=== PATIENT | female | born 1965 | race Asian ===

== ENCOUNTER 2017-12-24 20:36 | Emergency (ER) | payer OTHER, SELFPAY ==
--- NOTE | 2017-12-24 21:05 | RAD REPORT ---
EXAM DESCRIPTION: RAD - Ankle Left 3 View - 12/24/2017 8:59 pm CLINICAL HISTORY: Trauma, ankle pain COMPARISON: None. FINDINGS: Minimal avulsion is noted from the dorsal talar neck. No additional fracture or dislocatio n seen. Moderate soft tissue swelling is present.
--- NOTE | 2017-12-24 21:54 | ER ---
Nurse's Notes [facility] Name: Willa Núñez Age: 52 yrs Sex: Female : 1965 Arrival Date: 12/24/2017 Time: 20:40 Bed 5 Private MD: Diagnosis: Small avulsion fracture left talus Presentation: 12/24 20:42 Presenting complaint: Patient states: I stepped in a hole with my left foot and now my la1 left ankle and foot hurt. Transition of care: patient was not received from another setting of care. Onset of symptoms was December 24, 2017. Care prior to arrival: None. 20:42 Method Of Arrival: Wheelchair la1 20:42 Acuity: SELENE 4 la1 Historical: - Allergies: 20:43 No Known Allergies; la1 - PMHx: 20:43 None; la1 - Immunization history:: Adult Immunizations up to date. - Social history:: Smoking status: Patient uses tobacco products, smokes one-half pack cigarettes per day. Screenin:48 Abuse screen: Denies threats or abuse. Denies injuries from another. Nutritional aa1 screening: No deficits noted. Tuberculosis screening: No symptoms or risk factors identified. Assessment: 20:48 General: Appears in no apparent distress. comfortable, Behavior is calm, cooperative, aa1 appropriate for age. Pain: Complains of pain in left foot and ankle Aggravated by weight bearing. Neuro: Level of Consciousness is awake, alert, obeys commands, Oriented to person, place, time, situation, Moves all extremities. Respiratory: Airway is patent Respiratory effort is even, unlabored, Respiratory pattern is regular, symmetrical. GI: No signs and/or symptoms were reported involving the gastrointestinal system. : No signs and/or symptoms were reported regarding the genitourinary system. EENT: No signs and/or symptoms were reported regarding the EENT system. Derm: Skin is intact, is healthy with good turgor, Skin is pink, warm \T\ dry. Musculoskeletal: Circulation, motion, and sensation intact. Capillary refill < 3 seconds, Range of motion: limited in left ankle Swelling present in left lateral ankle, left medial ankle and anterior aspect of left ankle. 21:43 Reassessment: Patient appears in no apparent distress at this time. Patient and/or aa1 family updated on plan of care and expected duration. Pain level reassessed. Patient is alert, oriented x 3, equal unlabored respirations, skin warm/dry/pink. Awaiting provider reassessment. 22:12 Reassessment: Patient appears in no apparent distress at this time. Patient is alert, aa1 oriented x 3, equal unlabored respirations, skin warm/dry/pink. Discussed d/c \T\ f/u instructions with pt; denies questions or concerns at this time. Vital Signs: 20:43 BP 126 / 69; Pulse 79; Resp 16; Temp 98.4; Pulse Ox 100% on R/A; Weight 79.38 kg; la1 Height 5 ft. 6 in. (167.64 cm); 21:43 BP 92 / 72; Pulse 70; Resp 18; Pulse Ox 98% on R/A; aa1 20:43 Body Mass Index 28.25 (79.38 kg, 167.64 cm) la1 ED Course: 20:40 Patient arrived in ED. mr 20:43 Triage completed. la1 20:43 Arm band placed on left wrist. la1 20:44 Edenilson Le MD is Attending Physician. pkl 20:44 Aimee Gonzales RN is Primary Nurse. aa1 20:50 Patient has correct armband on for positive identification. Bed in low position. Call aa1 light in reach. Pulse ox on. NIBP on. Warm blanket given. 20:58 X-ray completed. Portable x-ray completed in exam room. Patient tolerated procedure la2 well. 20:59 Ankle Left 3 View XRAY In Process Unspecified. EDMS 21:52 Flaco Welch MD is Referral Physician. pkl 21:57 No provider procedures requiring assistance completed. Patient did not have IV access aa1 during this emergency room visit. 22:07 Crutch training done. Orthoglass splint: Posterior short lleg splint applied on left aa1 leg. applied by Evan Toney [employer] Administered Medications: No medications were administered Outcome: 21:53 Discharge ordered by . pkl 22:13 Discharged to home ambulatory, with crutches, with significant other. aa1 22:13 Condition: good 22:13 Discharge instructions given to patient, Instructed on discharge instructions, follow up and referral plans. medication usage, crutch walking, Demonstrated understanding of instructions, follow-up care, medications, crutch walking, splint care, Prescriptions given X 1. 22:16 Patient left the ED. aa1 Signatures: Dispatcher [employer] EDAimee Ortiz RN RN aa1 Edenilson Le MD MD pkl Rivera, Maria mr Attema, Lee, RN RN la1 Bina Medellin
--- NOTE | 2017-12-24 21:54 | EDPHYS ---
Physician Documentation [facility] Name: Willa Núñez Age: 52 yrs Sex: Female : 1965 Arrival Date: 12/24/2017 Time: 20:40 Bed 5 Private MD: ED Physician Edenilson Le HPI: 12/24 20:51 This 52 yrs old Female presents to ER via Wheelchair with complaints of Ankle pkl Injury, Foot Pain. 20:51 The patient presents with an injury, pain, that is acute. The complaints affect the pkl left ankle. Onset: The symptoms/episode began/occurred just prior to arrival. Context: resulted from stepped into a hole. Associated signs and symptoms: The patient has no apparent associated signs or symptoms. Historical: - Allergies: 20:43 No Known Allergies; la1 - PMHx: 20:43 None; la1 - Immunization history:: Adult Immunizations up to date. - Social history:: Smoking status: Patient uses tobacco products, smokes one-half pack cigarettes per day. ROS: 20:51 Eyes: Negative for injury, pain, redness, and discharge, ENT: Negative for injury, pkl pain, and discharge, Neck: Negative for injury, pain, and swelling, Cardiovascular: Negative for chest pain, palpitations, and edema, Respiratory: Negative for shortness of breath, cough, wheezing, and pleuritic chest pain, Abdomen/GI: Negative for abdominal pain, nausea, vomiting, diarrhea, and constipation, Back: Negative for injury and pain, : Negative for injury, bleeding, discharge, and swelling. 20:51 MS/extremity: Positive for pain, swelling, tenderness, of the left ankle. 20:51 Skin: Negative for rash. 20:51 Neuro: Negative for altered mental status. Exam: 20:51 Head/Face: Normocephalic, atraumatic. Eyes: Pupils equal round and reactive to light, pkl extra-ocular motions intact. Lids and lashes normal. Conjunctiva and sclera are non-icteric and not injected. Cornea within normal limits. Periorbital areas with no swelling, redness, or edema. ENT: Nares patent. No nasal discharge, no septal abnormalities noted. Tympanic membranes are normal and external auditory canals are clear. Oropharynx with no redness, swelling, or masses, exudates, or evidence of obstruction, uvula midline. Mucous membranes moist. Neck: Trachea midline, no thyromegaly or masses palpated, and no cervical lymphadenopathy. Supple, full range of motion without nuchal rigidity, or vertebral point tenderness. No Meningismus. Chest/axilla: Normal chest wall appearance and motion. Nontender with no deformity. No lesions are appreciated. Cardiovascular: Regular rate and rhythm with a normal S1 and S2. No gallops, murmurs, or rubs. Normal PMI, no JVD. No pulse deficits. Respiratory: Lungs have equal breath sounds bilaterally, clear to auscultation and percussion. No rales, rhonchi or wheezes noted. No increased work of breathing, no retractions or nasal flaring. Abdomen/GI: Soft, non-tender, with normal bowel sounds. No distension or tympany. No guarding or rebound. No evidence of tenderness throughout. Back: No spinal tenderness. No costovertebral tenderness. Full range of motion. Skin: Warm, dry with normal turgor. Normal color with no rashes, no lesions, and no evidence of cellulitis. Neuro: Awake and alert, GCS 15, oriented to person, place, time, and situation. Cranial nerves II-XII grossly intact. Motor strength 5/5 in all extremities. Sensory grossly intact. Cerebellar exam normal. Normal gait. 20:51 Musculoskeletal/extremity: Extremities: grossly normal except: noted in the left ankle: pain, swelling, tenderness. Vital Signs: 20:43 BP 126 / 69; Pulse 79; Resp 16; Temp 98.4; Pulse Ox 100% on R/A; Weight 79.38 kg; la1 Height 5 ft. 6 in. (167.64 cm); 21:43 BP 92 / 72; Pulse 70; Resp 18; Pulse Ox 98% on R/A; aa1 20:43 Body Mass Index 28.25 (79.38 kg, 167.64 cm) la1 Procedures: 21:51 Splinting: Splint applied to left ankle using short leg posterior splint. applied by [facility] tech. Examined by me, post splint application: neurovascular intact, 2+ distal pulses palpable, brisk capillary refill noted, Patient tolerated well. MDM: 20:44 Patient medically screened. [facility] 21:51 Data reviewed: vital signs, nurses notes, radiologic studies, plain films. [facility] 12/24 20:51 Order name: Ankle Left 3 View XRAY; Complete Time: 21:47 pkl 12/24 21:50 Order name: Splint Leg: Short Leg; Complete Time: 22:07 pkl 12/24 21:50 Order name: Crutches; Complete Time: 22:07 pkl Administered Medications: No medications were administered Disposition: 12/24/17 21:53 Discharged to Home. Impression: Small avulsion fracture left talus. - Condition is Stable. - Medication Reconciliation Form, Thank You Letter, Antibiotic Education, Prescription Opioid Use form. - Follow up: Flaco Welch MD; When: 2 - 3 days; Reason: Re-evaluation by your physician. Signatures: Dispatcher [employer] Aimee Haynes RN RN aa1 Edenilson Le MD MD pkGrover Alejo RN RN la1
== END 2017-12-24 22:16 | disposition home or self-care (01) ==
LOC: ER 20:36
PROC: 2W3RX1Z Immobilization of Left Lower Leg using Splint (ICD-10-PCS; principal; 2017-12-24)
DX: S92.155A Nondisplaced avulsion fracture (chip fracture) of left talus, initial encounter for closed fracture (principal); F17.210 Nicotine dependence, cigarettes, uncomplicated; X58.XXXA Exposure to other specified factors, initial encounter; Y93.89 Activity, other specified; Y92.9 Unspecified place or not applicable
CPT/HCPCS: 99284

== ENCOUNTER 2018-07-28 16:56 | Emergency (ER) | payer SELFPAY ==
[2018-07-28 18:03] LABS: Absolute Lymphocytes (CBC) 2.5 K/uL (0.7-4.9); Absolute Monocytes 0.6 K/uL (0.1-1.3); Absolute Neutrophil 3.1 K/uL (1.8-8.0); Eosinophils % 2.6 % (0-4.4); Hematocrit 40.7 % (36.0-45.0); Lymphocytes % 39.2 % (15.3-44.8); MCH 23.8 pg (27.0-35.0); MCV 75.4 fL (80-100); MPV 9.2 fL (7.6-11.3); Monocytes % 9.3 % (3.3-12.3)
[2018-07-28 18:22] LABS: BUN Blood Urea Nitrogen 24 mg/dL (7-18); Bicarbonate 30 mmol/L (21-32); Glucose Level 96 mg/dL (74-106); Potassium 3.9 mmol/L (3.5-5.1); Sodium Level 142 mmol/L (136-145); Troponin (Emerg Dept Use Only) < 0.02 ng/mL (0.0-0.045)
--- NOTE | 2018-07-28 18:40 | EDPHYS ---
Physician Documentation [facility] Name: Willa Núñez Age: 52 yrs Sex: Female : 1965 Arrival Date: 07/28/2018 Time: 16:59 Bed 18 Private MD: ED Physician Eric Horan HPI: 07/28 18:36 This 52 yrs old Female presents to ER via Ambulatory with complaints of weakness. jr8 18:36 Onset: The symptoms/episode began/occurred acutely, 2 day(s) ago. Associated signs and jr8 symptoms: Pertinent positives: chest pain, shortness of breath. Modifying factors: The patient symptoms are alleviated by nothing, the patient symptoms are aggravated by nothing. It is unknown whether or not the patient has had similar symptoms in the past. The patient has not recently seen a physician. Stated that when she is this fatigued she normally has anemia. History of chronic anemia. Had been recently moving as well. 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 - Social history:: Smoking status: Patient uses tobacco products, smokes one-half pack cigarettes per day. - Ebola Screening: : Patient denies travel to an Ebola-affected area in the 21 days before illness onset. ROS: 18:36 Eyes: Negative for injury, pain, redness, and discharge, ENT: Negative for injury, jr8 pain, and discharge, Neck: Negative for injury, pain, and swelling, Abdomen/GI: Negative for abdominal pain, nausea, vomiting, diarrhea, and constipation, Back: Negative for injury and pain, MS/Extremity: Negative for injury and deformity, Skin: Negative for injury, rash, and discoloration, Neuro: Negative for headache, weakness, numbness, tingling, and seizure. 18:36 Constitutional: Positive for fatigue. 18:36 Cardiovascular: Positive for chest pain, Negative for edema, orthopnea, palpitations, paroxysmal nocturnal dyspnea. 18:36 Respiratory: Positive for shortness of breath, Negative for cough, dyspnea on exertion, hemoptysis, orthopnea, pleurisy, sputum production, wheezing. Exam: 18:36 Eyes: Pupils equal round and reactive to light, extra-ocular motions intact. Lids and jr8 lashes normal. Conjunctiva and sclera are non-icteric and not injected. Cornea within normal limits. Periorbital areas with no swelling, redness, or edema. ENT: Nares patent. No nasal discharge, no septal abnormalities noted. Tympanic membranes are normal and external auditory canals are clear. Oropharynx with no redness, swelling, or masses, exudates, or evidence of obstruction, uvula midline. Mucous membranes moist. Neck: Trachea midline, no thyromegaly or masses palpated, and no cervical lymphadenopathy. Supple, full range of motion without nuchal rigidity, or vertebral point tenderness. No Meningismus. Cardiovascular: Regular rate and rhythm with a normal S1 and S2. No gallops, murmurs, or rubs. Normal PMI, no JVD. No pulse deficits. Respiratory: Lungs have equal breath sounds bilaterally, clear to auscultation and percussion. No rales, rhonchi or wheezes noted. No increased work of breathing, no retractions or nasal flaring. Abdomen/GI: Soft, non-tender, with normal bowel sounds. No distension or tympany. No guarding or rebound. No evidence of tenderness throughout. Back: No spinal tenderness. No costovertebral tenderness. Full range of motion. Skin: Warm, dry with normal turgor. Normal color with no rashes, no lesions, and no evidence of cellulitis. MS/ Extremity: Pulses equal, no cyanosis. Neurovascular intact. Full, normal range of motion. Neuro: Awake and alert, GCS 15, oriented to person, place, time, and situation. Cranial nerves II-XII grossly intact. Motor strength 5/5 in all extremities. Sensory grossly intact. Cerebellar exam normal. Normal gait. Vital Signs: 17:07 BP 123 / 62; Pulse 88; Resp 18; Temp 97.7; Pulse Ox 100% on R/A; Weight 80.74 kg (R); aj1 Height 5 ft. 6 in. (167.64 cm) (R); Pain 0/10; 17:59 BP 131 / 71; Pulse 77; Resp 16; Pulse Ox 98% on R/A; Pain 0/10; em 17:07 Body Mass Index 28.73 (80.74 kg, 167.64 cm) aj1 MDM: 17:09 Patient medically screened. jr8 18:36 Data reviewed: vital signs, nurses notes, lab test result(s), EKG, radiologic studies, jr8 plain films, and as a result, I will discharge patient. Data interpreted: Pulse oximetry: on room air is 98 %. Interpretation: normal. Counseling: I had a detailed discussion with the patient and/or guardian regarding: the historical points, exam findings, and any diagnostic results supporting the discharge/admit diagnosis, lab results, radiology results, the need for outpatient follow up, a family practitioner, to return to the emergency department if symptoms worsen or persist or if there are any questions or concerns that arise at home. 07/28 17:41 Order name: CBC with Diff; Complete Time: 18:08 [facility] 07/28 17:41 Order name: Basic Metabolic Panel; Complete Time: 18:34 [facility] 07/28 17:40 Order name: EKG - Nurse/Tech; Complete Time: 17:40 [facility] 07/28 17:41 Order name: Troponin (emerg Dept Use Only); Complete Time: 18:34 8 07/28 17:41 Order name: XRAY Chest (1 view); Complete Time: 20:23 [facility] 07/28 17:58 Order name: EKG Electrocardiogram [facility] 07/28 17:41 Order name: IV; Complete Time: 18:00 [facility] Administered Medications: No medications were administered Disposition: 07/28/18 18:39 Discharged to Home. Impression: Weakness. - Condition is Stable. - Discharge Instructions: Weakness, Fatigue. - Medication Reconciliation Form, Thank You Letter, Antibiotic Education, Prescription Opioid Use form. - Follow up: Private Physician; When: 2 - 3 days; Reason: Recheck today's complaints, Continuance of care, Re-evaluation by your physician. - Problem is new. - Symptoms have improved. Addendum: 07/31/2018 07:45 Co-signature as Attending Physician, Eric Horan MD. r n Signatures: Dispatcher [employer] EDME Christina Eckert, RN RN aj1 Eric Horan MD MD rn Roszak, Josh, PA PA jr8 Gwen Pak, RN RN ak1 Corrections: (The following items were deleted from the chart) 07/28 19:34 18:39 07/28/2018 18:39 Discharged to Home. Impression: Weakness. Condition is Stable. ak1 Forms are Medication Reconciliation Form, Thank You Letter, Antibiotic Education, Prescription Opioid Use. Follow up: Private Physician; When: 2 - 3 days; Reason: Recheck today's complaints, Continuance of care, Re-evaluation by your physician. Problem is new. Symptoms have improved. jr8
--- NOTE | 2018-07-28 18:40 | ER ---
Nurse's Notes [facility] Name: Willa Núñez Age: 52 yrs Sex: Female : 1965 Arrival Date: 07/28/2018 Time: 16:59 Bed 18 Private MD: Diagnosis: Weakness Presentation: 07/28 17:04 Presenting complaint: Patient states: "I've been tired all day and Im chronic anemia. I aj1 checked my blood pressure yesterday and it was 90/53." Patient also reports that she had some shortness of breath yesterday. Denies pain at this time. Denies SOB at this time. Transition of care: patient was not received from another setting of care. Onset of symptoms was July 27, 2018. Risk Assessment: Do you want to hurt yourself or someone else? Patient reports no desire to harm self or others. Initial Sepsis Screen: Does the patient meet any 2 criteria? No. Patient's initial sepsis screen is negative. Does the patient have a suspected source of infection? No. Patient's initial sepsis screen is negative. Care prior to arrival: None. 17:04 Method Of Arrival: Ambulatory aj1 17:04 Acuity: SELENE 3 aj1 Triage Assessment: 17:07 General: Appears in no apparent distress. comfortable, Behavior is calm, cooperative, aj1 appropriate for age. Pain: Denies pain. Neuro: Level of Consciousness is awake, alert, obeys commands. Cardiovascular: Patient's skin is warm and dry. Respiratory: Airway is patent Respiratory effort is even, unlabored, Respiratory pattern is regular, symmetrical. 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 - Social history:: Smoking status: Patient uses tobacco products, smokes one-half pack cigarettes per day. - Ebola Screening: : Patient denies travel to an Ebola-affected area in the 21 days before illness onset. Screenin:38 Abuse screen: Denies threats or abuse. Nutritional screening: No deficits noted. em Tuberculosis screening: No symptoms or risk factors identified. Fall Risk None identified. Assessment: 17:50 General: Appears in no apparent distress. comfortable, Behavior is calm, cooperative. em Pain: Denies pain. Neuro: Level of Consciousness is awake, alert, obeys commands, Oriented to person, place, time, situation, Reports weakness Denies dizziness, headache. Cardiovascular: Reports shortness of breath, Denies chest pain, Capillary refill < 3 seconds Patient's skin is warm and dry. Respiratory: Airway is patent Respiratory effort is even, unlabored, Respiratory pattern is regular, symmetrical, Breath sounds are clear bilaterally. GI: Abdomen is round non-distended. : No signs and/or symptoms were reported regarding the genitourinary system. EENT: No signs and/or symptoms were reported regarding the EENT system. Derm: Skin is intact, Skin is pink, warm \\T\\ dry. Musculoskeletal: Capillary refill < 3 seconds, Range of motion: intact in all extremities. 17:58 Reassessment: I agree with previous assessment. hb 18:47 Reassessment: Patient appears in no apparent distress at this time. Patient and/or em family updated on plan of care and expected duration. Pain level reassessed. Patient is alert, oriented x 3, equal unlabored respirations, skin warm/dry/pink. Patient denies pain at this time. Patient states feeling better. Vital Signs: 17:07 BP 123 / 62; Pulse 88; Resp 18; Temp 97.7; Pulse Ox 100% on R/A; Weight 80.74 kg (R); aj1 Height 5 ft. 6 in. (167.64 cm) (R); Pain 0/10; 17:59 BP 131 / 71; Pulse 77; Resp 16; Pulse Ox 98% on R/A; Pain 0/10; em 17:07 Body Mass Index 28.73 (80.74 kg, 167.64 cm) aj1 ED Course: 16:59 Patient arrived in ED. as 17:05 Triage completed. aj1 17:07 Arm band placed on Patient placed in an exam room. aj1 17:09 Pete Curtis PA is PHCP. jr8 17:09 Eric Horan MD is Attending Physician. jr8 17:17 EKG done, by product/device technologist. reviewed by Pete WOLFE. 3 17:33 Ricardo Overton LVN is Primary Nurse. em 17:38 Patient has correct armband on for positive identification. Placed in gown. Bed in low em position. Call light in reach. Adult w/ patient. 19:19 X-ray completed. Portable x-ray completed in exam room. Patient tolerated procedure ka well. 19:20 XRAY Chest (1 view) In Process Unspecified. EDMS 19:25 No provider procedures requiring assistance completed. ak1 19:30 IV discontinued, intact, bleeding controlled, No redness/swelling at site. Pressure ak1 dressing applied, 20g IV in there right AC placed prior to this nurses care was dc'd prior to discharge. Administered Medications: No medications were administered Outcome: 18:39 Discharge ordered by MD. jr8 19:26 Discharged to home ambulatory, with family. ak1 19:26 Condition: stable 19:31 Discharge instructions given to patient, Instructed on discharge instructions, follow ak1 up and referral plans. Demonstrated understanding of instructions, follow-up care. 19:34 Patient left the ED. ak1 Signatures: Dispatcher [employer] Christina Conte, RN RN aj1 Ricardo Overton LVN LVN em Martinez, Amelia as Roszak, Josh, PA PA jr8 Gwen Pak RN RN ak1 Guerda Velez Heather, TAPAN RN Betty Casas 3
--- NOTE | 2018-07-28 19:29 | RAD REPORT ---
EXAM DESCRIPTION: Enrrique Single View07/28/2018 7:19 pm CLINICAL HISTORY: sob COMPARISON: none FINDINGS: The lungs appear clear of acute infiltrate. The heart is normal size IMPRESSION: No acute abnormalities displayed
--- NOTE | 2018-07-29 08:26 | EKG ---
Test Date: 2018-07-28 Test Time: 17:12:35 Charging Crane Operator: JACKIE MEASUREMENT RESULTS: Intervals: Rate: 75 WI: 128 QRSD: 88 QT: 362 QTc: 404 [place]: P: 56 WI: 128 QRS: -31 T: 21 INTERPRETIVE STATEMENTS: Normal sinus rhythm Left axis deviation Cannot rule out Anterior infarct, age undetermined Abnormal ECG No previous ECG available for comparison Electronically Signed On 07-29-18 08:26:00 CDT by Winston Jj
== END 2018-07-28 19:34 | disposition home or self-care (01) ==
LOC: ER 16:56
DX: R53.1 Weakness (principal)
CPT/HCPCS: 36415; 71045; 80048; 84484; 85025; 93005; 99283

== ENCOUNTER 2022-03-12 04:05 | Emergency (ER) | payer SELFPAY ==
--- OUTSIDE RECORDS SUMMARY | 2022-03-12 04:08 | XMS REPORT | Continuity of Care Document ---
:1965 Author Organization [facility] t Address [address] [place] [address] Care Team Providers Name Role Phone PCP, DOES NOT HAVE A Primary Care Physician Unavailable CORINNA Attending Clinician Unavailable Corinna BARAJAS Attending Clinician Carmelo LEVY Attending Clinician Unavailable Mirza BARAJAS S Attending Clinician Carmelo BEY Attending Clinician Unavailable Carmelo LEVY Admitting Clinician Unavailable Carmelo BEY Admitting Clinician Unavailable Payers Payer Name Policy Type Policy Number Effective Date Expiration Date S jagjit TELLO DISABILITY [id number] 2018 DETERMINATION [facility] 00:00:00 Problems Condition Condition Condition Status Onset Resolution Last Treating Co mments Source Name Details Category Date Date Treatment Clinician Date Right Right Disease Active 2020-0 Univers flank flank 5-08 [place] [facility] Branch Establishi Establishi Disease Active 2020-0 U nivers ng care ng care 5-08 ity of with new with new 00:00: [place] doctor, doctor, 00 Medical encounter encounter [place] for for Tobacco Tobacco Disease Active 2020-0 Univers dependence dependence 5-08 it y of 00:00: [place] [address] Medical Branch Pyelonephr Pyelonephr Disease Active 2020-0 U nivers itis itis 5-08 ity of 00:00: [place] [address] Medical Branch Acute Acute Disease Active 2020-0 Univers midline midline 5-08 ity of low back low back 00:00: [place] pain pain 00 Medical without without Branch sciatica sciatica Chills Chills Disease Active 2020-0 Univers 5-08 ity of 00:00: [place] 00 Medical Branch Allergies, Adverse Reactions, Alerts Allergy Allergy Status Severity Reaction(s) Onset Inactive Treating Comm ents Source Name Type Date Date Clinician Tramadol Propensi Active Itching Unive rs ty to 8-15 ity of adverse 00:00: [place] reaction 00 Medical s Branch TRAMADOL DRUG Active ITCHING Univers INGREDI 8-15 ity of 00:00: [place] 00 Medical Branch NO KNOWN Drug Active Univers ALLERGIE Class ity of S [place] [facility] Social History Social Habit Start Date Stop Date Quantity Comments Source [facility] [place] [facility] Exposure to Unable to assess Univers ity of SARS-CoV-2 [facility] (event) [place] Alcohol intake 2020-02-01 2020-02-01 [facility] 00:00:00 00:00:00 [place] [facility] Smoking Status Start Date Stop Date Source Unknown if ever smoked [facility] Current every day smoker 2020-02-01 00:00:00 Uni versity [facility] Medications Ordered Filled Start Stop Current Ordering Indication Dosage Frequency Signature Comments Components Source Medication Medication Date Date Medication? Clinician (SIG) Name Name ciprofloxac 2019-0 Yes [id number] 500mg Take 1 Univers in HCl 500 5-08 tablet by ity of mg tablet 00:00: mouth [place] 00 every 12 Medical (twelve) Branch hours. acetaminoph 2020-0 Yes [id number] 1{tbl} Take 1 Univers en-codeine 5-08 tablet by ity of 300-30 mg 00:00: mouth [place] tablet 00 every 4 Medical (four) Branch hours as needed for Pain (scale 4-6) (Cough). ciprofloxac 2020-0 Yes [id number] 500mg Take 1 Univers in HCl 500 5-08 tablet by ity of mg tablet 00:00: mouth [place] 00 every 12 Medical (twelve) Branch hours. acetaminoph 2020-0 Yes [id number] 1{tbl} Take 1 Univers en-codeine 5-08 tablet by ity of 300-30 mg 00:00: mouth [place] tablet 00 every 4 Medical (four) Branch hours as needed for Pain (scale 4-6) (Cough). ketorolac 2020-0 Yes [id number] 10mg Take 1 Un kari 10 mg 4-27 tablet by ity of tablet 00:00: mouth [place] 00 every 6 Medical (six) Branch hours as needed for Pain (scale 4-6). ketorolac Yes [id number] 10mg Take 1 Un kari 10 mg 4-27 tablet by ity of tablet 00:00: mouth [place] 00 every 6 Medical (six) Branch hours as needed for Pain (scale 4-6). meclizine 2019- No 50mg 50 mg, Unive rs (TRAVEL-EAS 04-30 08-05 Oral, ity of E 22:00: 21:13 ONCE, 1 [place] (MECLIZINE) 00 :00 dose, Mon Med ical ) tablet 50 04/30/19 at [facility] mg 1700, NAZARIO meclizine Yes [id number] 25mg Take 1 U nivers 25 mg 8-05 tablet by ity of tablet 00:00: mouth [place] 00 every 6 Medical (six) Branch hours. HYDROcodone 2019- No TK 1 T PO Univers -acetaminop 3-26 05-08 BID ity of hen 10-325 00:00: 00:00 [place] mg tablet 00 :00 Medical Branch ibuprofen Yes 800mg Take 1 Unive rs 800 mg 8-15 tablet by ity of tablet 00:00: mouth [place] 00 every 8 Medical (eight) Branch hours. ibuprofen Yes 800mg Take 1 Unive rs 800 mg 8-15 tablet by ity of tablet 00:00: mouth [place] 00 every 8 Medical (eight) Branch hours. acetaminoph 2019- No 1{tbl} Take 1 U nivers en-codeine 8-15 05-08 tablet by ity of 300-30 mg 00:00: 00:00 mouth [place] tablet 00 :00 every 4 Medical (four) Branch hours as needed for Pain (scale 4-6) (Cough). Hydrocodone Yes Take by Un kari -Acetaminop 1-06 mouth. ity of hen (XODOL 16:46: [place] 7.5/300) 36 Medical 7.5-300 mg Branch tablet Vital Signs Vital Name Observation Time Observation Value Comments Source Heart rate 2019-04-30 21:49:00 65 /[facility] Respiratory rate 2019-04-30 21:49:00 15 /min [facility] Oxygen saturation in 2019-04-30 21:49:00 100 /min [facility] Arterial blood by [facility] Pulse oximetry Branch Systolic blood 2019-04-30 21:00:00 103 mm[Hg] Univer sity of pressure [place] [facility] Diastolic blood 2019-04-30 21:00:00 67 mm[Hg] Unive rsity of pressure [place] [facility] Body temperature 2019-04-30 19:51:00 36.94 Jacqueline [facility] Body height 2019-04-30 19:51:00 162.6 cm [facility] Body weight 2019-04-30 19:51:00 79.833 kg [facility] BMI 2019-04-30 19:51:00 30.21 kg/m2 [facility] Procedures Procedure Date / Time Performing Clinician Source Performed COMP. METABOLIC PANEL 2019-04-30 20:36:00 Jane Bey [facility] ([id number]) [facility] CBC WITH DIFFERENTIAL 2019-04-30 20:36:00 Jane Bey [facility] CT HEAD WO CONTRAST 2019-04-30 20:32:15 Jane Bey [facility] EKG-12 LEAD 2019-04-30 20:17:49 Jane Bey [facility] Encounters Start End Encounter Admission Attending Care Care Encounter Source Date/Time Date/Time Type Type Clinicians Facility Department ID 2020-03-04 2020-03-04 Outpatient R CORINNA [facility] [id number] Univers 12:40:00 12:40:00 JAMES [id number] [facility] 2020-03-04 2020-03-04 Outpatient R CORINNA [facility] [id number] Univers 12:40:00 12:40:00 JAMES [facility] 2020-02-28 2020-02-28 Outpatient R CORINNA [facility] [id number] Univers 09:00:00 09:00:00 JAMES Hall [facility] 2020-02-28 2020-02-28 Outpatient R CORINNA [facility] [id number] Univers 09:00:00 09:00:00 JAMES [facility] 2020-02-15 2020-02-15 Outpatient R CORINNA [facility] [id number] Univers 09:40:00 09:40:00 JAMES [id number] ity [facility] 2020-02-15 2020-02-15 Outpatient R CORINNA [facility] [id number] Univers 09:40:00 09:40:00 JAMES farzana [facility] 2020-02-15 2020-02-15 [facility] [id number] Univers 00:00:00 00:00:00 James Leonard [id number] i ty [id number] [phone] Pr dical nal [address] [place] [address] 2020-02-01 2020-02-01 [facility] [id number] Univers 10:40:00 10:40:00 [facility]-01 2020-02-01 [facility] [id number] Univers 10:40:00 10:40:00 JAMES farzana [facility] 2020-02-01 2020-02-01 [facility] [id number] Univers 10:40:00 10:40:00 JAMES farzana [facility] 2020-02-01 2020-02-01 [facility] [id number] Univers 07:27:18 08:07:18 ne Visit James Leonard [id number] ity [facility] [id number] [phone] Pr dical nal [address] [place] [address] 2020-01-21 2020-01-21 Emergency X LEVY, [facility] ERT [id number] Univers 10:19:26 12:17:00 GISSELLE [facility] 2019-04-30 2019-04-30 [facility] [id number] Univers 15:00:09 17:27:00 Jane Leonard [id number] ity of [place] 4.2.7.2.686 [facility] [phone] [facility] 084 Branch 2019-04-30 2019-04-30 Emergency X MIRZA [facility] ERT [id number] Univers 15:00:09 17:27:00 JANE corona [facility] Results Test Description Test Time Test Comments Results Result Comments Source COMP. METABOLIC PANEL (36274) 2019-04-30 21:31:00 Test Item Value Reference Range Interpretation Comme nts NA (test code = 9900473491) 142 mmol/L 135-145 K (test code = 9390839445) 4.3 mmol/L 3.5-5 CL (test code = 3798746742) 108 mmol/L 98-108 CO2 TOTAL (test code = 27 mmol/L 23-31 3747256787) AGAP (test code = 3969805804) 2-16 BUN (test code = 1977416323) 21 mg/dL 7-23 GLUCOSE (test code = 4226953942) 80 mg/dL 70-110 CREATININE (test code = 0.65 mg/dL 0.5-1.04 2066431123) TOTAL BILI (test code = 0.4 mg/dL 0.1-1.1 2649504052) CALCIUM (test code = 8771575722) 9.4 mg/dL 8.6-10.6 T PROTEIN (test code = 7.1 g/dL 6.3-8.2 5965482431) ALBUMIN (test code = 0830366313) 4.3 g/dL 3.5-5 ALK PHOS (test code = 0609439003) 60 U/L 34-122 ALT(SGPT) (test code = 15 U/L 9-51 3824444540) AST(SGOT) (test code = 19 U/L 13-40 7177317863) eGFR Calculation (Non- mL/min/1.73m2 [place]) (test code = 9324277240) eGFR Calculation ( mL/min/1.73m2 [place]) (test code = 0439685695) BUSHRA (test code = BUSHRA) Association of Glomerular Filtration Rate (GFR) and Staging of Kidney Disease*+ +- + +| GFR (mL/min/1.73 m2)?| With Kidney Damage?|?Without Kidney Damage+ +--- + +|?>90?|?Stage one?|? Normal?+ +-- + +|?60-89?|?Stage two?|? Decreased GFR? + +--------- + ----+|?30-59?|?Stage three?|? Stage three? + +--------- + ----+|?15-29?|?Stage four? |? Stage four?+ +---- + ---------+|?<15 (or dialysis)?|?Stage five? |? Stage five?+ +---- + ---------+*Each stage assumes the associated GFR level has been in effect for at least three months.?Stages 1 to 5, with or without kidney disease, indicate chronic kidney disease.Notes: Determination of stages one and two (with eGFR >59mL/min/1.73 m2) requires estimation of kidney damage for at least three months as defined by structural or functional abnormalities of the kidney, manifested by either:Pathological abnormalities or Markers of kidney damage (including abnormalities in the composition of the blood or urine or abnormalities in imaging tests). [facility] WITH [id number] 20:54:00 Test Item Value Reference Range Interpretation Comments WBC (test code = See_Comment [Automated 9812-2) message] The sy stem which generated this result transmitted reference range : 4.30 - 11.10 10*3/?L. The reference range was not used to interpret this result as normal/abnormal . RBC (test code = See_Comment H [Automated 179-8) message] The sy stem which generated this result transmitted reference range : 3.93 - 5.25 10*6/?L. The reference range was not used to interpret this result as normal/abnormal . HGB (test code = 12.9 g/dL 11.6-15 718-7) HCT (test code = 43.2 % 35.7-45.2 4544-3) MCV (test code = 78.0 fL 80.6-95.5 L 787-2) MCH (test code = 23.3 pg 25.9-32.8 L 785-6) MCHC (test code = 29.9 g/dL 31.6-35.1 L 786-4) RDW-SD (test code = 42.3 fL 39-49.9 26601-0) RDW-CV (test code = 15.0 % 12-15.5 788-0) PLT (test code = See_Comment [Automated 777-3) message] The sy stem which generated this result transmitted reference range : 166 - 358 10*3/ ?L. The reference r lanie was not used to interpret this result as normal/abnormal . MPV (test code = 11.3 fL 9.5-12.9 41664-5) NRBC/100 WBC (test See_Comment [Automat ed code = 0316156767) message] The system which generated this result transmitted reference range : 0.0 - 10.0 /100 WBCs. The refer ence range was not u sed to interpret th is result as normal/abnormal . NRBC x10^3 (test code <0.01 See_Comment [Auto mated = 8812093937) message] The s ystem which generated this result transmitted reference range : 10*3/?L. The reference range was not used to interpret this result as normal/abnormal . GRAN MAT (NEUT) % 48.1 % (test code = 770-8) IMM GRAN % (test code 0.30 % = 1817601126) LYMPH % (test code = 39.4 % 736-9) MONO % (test code = 8.3 % 5905-5) EOS % (test code = 3.3 % 713-8) BASO % (test code = 0.6 % 706-2) GRAN MAT x10^3(ANC) 3.31 10*3/uL 1.88-7.09 (test code = 2299323190) IMM GRAN x10^3 (test <0.03 0-0.06 code = 7612092671) LYMPH x10^3 (test code 2.71 10*3/uL 1.32-3.29 = 731-0) MONO x10^3 (test code 0.57 10*3/uL 0.33-0.92 = 742-7) EOS x10^3 (test code = 0.23 10*3/uL 0.03-0.39 711-2) BASO x10^3 (test code 0.04 10*3/uL 0.01-0.07 = 704-7) Lab Interpretation Abnormal (test code = 76240-4) [id number] 20:48:26* * * * * * * * ORIGINAL REPORT * * * * * * * *CT HEAD WITHOUT CONTRAST HISTORY:?Dizziness, non-specific TECHNIQUE: Routine CT scan of the brain is performed without intravenouscontrast. FINDINGS: There is no evidence of an acute intracranial abnormality. Nointra-axial or extra-axial fluid collectionsor masses are seen. Nomass-effect or midline shift is seen. The larson-white distinction ispreserved. The ventricles and cisterns are within normal limits. No calvarial abnormality is noted. CONCLUSIONS:No acute intracranial abnormality. [facility], Radiant Results Inft User - 04/30/2019 3:50 PM CDT* * * * * * * * ORIGINAL REPORT * * * * * * * *CT HEAD WITHOUT CONTRASTHISTORY: Dizziness, non-specificTECHNIQUE: Routine CT scan of the brain is performed without intravenouscontrast.FINDINGS: There is no evidence of an acute intracranial abnormality. Nointra-axial or extra-axial fluid collections or masses are seen. Nomass-effect or midline shift is seen. The larson-white distinction ispreserved. The ventricles and cisterns are within normal limits.No calvarial abnormality is noted.CONCLUSIONS: No acute intracranial abnormality. [facility]"
[2022-03-12 04:53] LABS: Absolute Lymphocytes (CBC) 2.4 K/uL (0.7-4.9); Hematocrit 39.7 % (36.0-45.0); Lymphocytes % 35.3 % (15.3-44.8); MPV 8.4 fL (7.6-11.3); RBC Red Blood Cell Count 5.25 M/uL (3.86-4.86)
[2022-03-12] MEDS ORDERED: NA CHLORIDE 0.9% 500 ML ONE (04:53)
[2022-03-12] MEDS ORDERED: ONDANSETRON 4 MG/2 ML VIAL ONE (04:53)
[2022-03-12] MEDS ORDERED: NA CHLORIDE 0.9% 1,000 ML ONE (04:53)
[2022-03-12] MEDS ORDERED: DIAZEPAM 5 MG TABLET ONE (04:53)
[2022-03-12] MEDS ORDERED: MORPHINE 2 MG/ML SYR ONE (04:53)
[2022-03-12 05:14] LABS: Albumin 3.8 g/dL (3.4-5.0); Bilirubin Total 0.5 mg/dL (0.2-1.0); Potassium 3.8 mmol/L (3.5-5.1); Troponin High Sensitivity 3.5 pg/mL (<58.9)
--- NOTE | 2022-03-12 05:31 | EDPHYS ---
Physician Documentation [facility] Name: Willa Núñez Age: 56 yrs Sex: Female : 1965 Arrival Date: 03/12/2022 Time: 04:07 Bed 17 Private MD: ED Physician Min Li HPI: 03/12 04:26 This 56 yrs old Female presents to ER via EMS with complaints of Leg Pain. [facility] 04:26 The patient presents with pain, that is acute. The complaints affect the left ronan quadriceps, left knee and left crowder. Context: The problem was sustained at home, resulted from an unknown cause, the patient can fully bear weight, the patient is able to ambulate. Onset: The symptoms/episode began/occurred just prior to arrival. Modifying factors: The symptoms are alleviated by elevating leg, the symptoms are aggravated by nothing. Associated signs and symptoms: The patient has no apparent associated signs or symptoms. Treatment prior to arrival includes: no previous treatment. Severity of symptoms: At their worst the symptoms were moderate, in the emergency department the symptoms have improved, moderately. The patient has experienced similar episodes in the past, multiple times. Historical: - Allergies: 04:13 No Known Allergies; lp1 - Home Meds: 04:13 None [Active]; lp1 - PMHx: 04:13 Anxiety; chronic anemia; Depression; Muscle cramps; lp1 - PSHx: 04:13 Tubal Ligation; lp1 - Immunization history:: Adult Immunizations up to date. - Social history:: Smoking status: Patient reports the use of cigarette tobacco products, smokes one-half pack cigarettes per day. - Family history:: not pertinent. ROS: 04:26 Constitutional: Negative for fever, chills, and weight loss, Eyes: Negative for injury, ronan pain, redness, and discharge, ENT: Negative for injury, pain, and discharge, Neck: Negative for injury, pain, and swelling, Cardiovascular: Negative for chest pain, palpitations, and edema, Respiratory: Negative for shortness of breath, cough, wheezing, and pleuritic chest pain, Abdomen/GI: Negative for abdominal pain, nausea, vomiting, diarrhea, and constipation, Back: Negative for injury and pain, : Negative for injury, bleeding, discharge, and swelling, Skin: Negative for injury, rash, and discoloration, Neuro: Negative for headache, weakness, numbness, tingling, and seizure, Psych: Negative for depression, anxiety, suicide ideation, homicidal ideation, and hallucinations, Allergy/Immunology: Negative for hives, rash, and allergies, Endocrine: Negative for neck swelling, polydipsia, polyuria, polyphagia, and marked weight changes, Hematologic/Lymphatic: Negative for swollen nodes, abnormal bleeding, and unusual bruising. 04:26 MS/extremity: Positive for decreased range of motion, of the left leg. Exam: 04:26 Constitutional: This is a well developed, well nourished patient who is awake, alert, ronan and in no acute distress. Head/Face: Normocephalic, atraumatic. Eyes: Pupils equal round and reactive to light, extra-ocular motions intact. Lids and lashes normal. Conjunctiva and sclera are non-icteric and not injected. Cornea within normal limits. Periorbital areas with no swelling, redness, or edema. ENT: Nares patent. No nasal discharge, no septal abnormalities noted. Tympanic membranes are normal and external auditory canals are clear. Oropharynx with no redness, swelling, or masses, exudates, or evidence of obstruction, uvula midline. Mucous membranes moist. Neck: Trachea midline, no thyromegaly or masses palpated, and no cervical lymphadenopathy. Supple, full range of motion without nuchal rigidity, or vertebral point tenderness. No Meningismus. Chest/axilla: Normal chest wall appearance and motion. Nontender with no deformity. No lesions are appreciated. Cardiovascular: Regular rate and rhythm with a normal S1 and S2. No gallops, murmurs, or rubs. Normal PMI, no JVD. No pulse deficits. Respiratory: Lungs have equal breath sounds bilaterally, clear to auscultation and percussion. No rales, rhonchi or wheezes noted. No increased work of breathing, no retractions or nasal flaring. Abdomen/GI: Soft, non-tender, with normal bowel sounds. No distension or tympany. No guarding or rebound. No evidence of tenderness throughout. Back: No spinal tenderness. No costovertebral tenderness. Full range of motion. Female : Normal external genitalia. Skin: Warm, dry with normal turgor. Normal color with no rashes, no lesions, and no evidence of cellulitis. MS/ Extremity: Pulses equal, no cyanosis. Neurovascular intact. Full, normal range of motion. Neuro: Awake and alert, GCS 15, oriented to person, place, time, and situation. Cranial nerves II-XII grossly intact. Motor strength 5/5 in all extremities. Sensory grossly intact. Cerebellar exam normal. Normal gait. Psych: Awake, alert, with orientation to person, place and time. Behavior, mood, and affect are within normal limits. 05:32 ECG was reviewed by the Attending Physician. [facility] Vital Signs: 04:12 BP 102 / 49; Pulse 74; Resp 18; Temp 97.6(TE); Pulse Ox 100% on R/A; Weight 83.91 kg lp1 (R); Height 5 ft. 5 in. (165.10 cm); Pain 3/10; 05:00 BP 94 / 47; Pulse 65; Resp 18; Pulse Ox 100% on R/A; ll3 06:00 BP 101 / 57; Pulse 78; Resp 17; Pulse Ox 100% on R/A; ll3 04:12 Body Mass Index 30.79 (83.91 kg, 165.10 cm) lp1 MDM: 04:09 Patient medically screened. [facility] 04:29 Differential diagnosis: contusion, tendonitis. Data reviewed: vital signs, nurses [facility] notes, lab test result(s), EKG, radiologic studies, doppler. Data interpreted: resource efficiency manager: rate is 74 beats/min, rhythm is regular, Pulse oximetry: on room air is 100 %. Test interpretation: by ED physician or midlevel provider: ECG, plain radiologic studies. Counseling: I had a detailed discussion with the patient and/or guardian regarding: the historical points, exam findings, and any diagnostic results supporting the discharge/admit diagnosis, lab results, radiology results, the need for outpatient follow up, for definitive care, a family practitioner. 03/12 04:26 Order name: Comprehensive Metabolic Panel; Complete Time: 05:26 [facility] 03/12 04:26 Order name: CBC with Diff; Complete Time: 05:26 [facility] 03/12 04:26 Order name: US Extremity Venous Unilateral Ltd ronan 03/12 04:26 Order name: Troponin High Sensitivity; Complete Time: 05:26 [facility] 03/12 05:36 Order name: Magnesium EDMS 03/12 04:26 Order name: EKG; Complete Time: 04:27 [facility] 03/12 04:26 Order name: EKG - Nurse/Tech; Complete Time: 05:08 ronan EC:32 Rate is 62 beats/min. Rhythm is regular. QRS [place] is Normal. [place] interval is normal. QRS ronan interval is normal. QT interval is normal. No Q waves. T waves are Normal. No ST changes noted. Clinical impression: Normal ECG and No evidence of ischemia. Interpreted by me. Reviewed by me. Administered Medications: 04:50 Drug: NS 0.9% 500 ml Route: IV; Rate: bolus; Site: right antecubital; ll3 06:01 Follow up: Response: No adverse reaction; IV Status: Order to discontinue infusion; IV ll3 Intake: 250ml 04:50 Drug: Valium (diazepam) 5 mg Route: PO; ll3 05:49 Follow up: Response: No adverse reaction ll3 04:50 Drug: Zofran (Ondansetron) 4 mg Route: IVP; Site: right antecubital; ll3 05:49 Follow up: Response: No adverse reaction ll3 05:11 Not Given (Patient Refused): morphine 2 mg IVP or IV at per protocol once; (PAIN>8) ll3 RASS on ADMN: Combtv4, Very Agttd3, Agttd2, Rstlss1, AlertClm0, Drwsy-1, LtSdtn-2, ModSdtn-3, DpSdtn-4, UnArsble-5 x2 05:49 Not Given (Pt dischargedd): NS 0.9% 1000 ml IV at 125 ml/hr continuous ll3 Disposition Summary: 03/12/22 05:31 Discharge Ordered Location: Home ronan Problem: new ronan Symptoms: have improved ronan Condition: Stable ronan Diagnosis - Cramp and spasm ronan - Pain in left leg ronan Followup: ronan - With: Private Physician - When: 2 - 3 days - Reason: Recheck today's complaints, Continuance of care, Re-evaluation by your physician Followup: ronan - With: - When: 2 - 3 days - Reason: Recheck today's complaints, Re-evaluation by your physician Discharge Instructions: - Discharge Summary Sheet ronan - Leg Cramps ronan - Muscle Cramps and Spasms ronan - Musculoskeletal Pain ronan Forms: - Medication Reconciliation Form ronan - Thank You Letter ronan - Antibiotic Education ronan - Prescription Opioid Use ronan Prescriptions: - Valium 2 mg Oral Tablet - take 1 tablet by ORAL route every 8 hours As needed; 20 tablet; Refills: 0, [facility] Product Selection Permitted - Motrin IB 200 mg Oral Tablet - take 2 tablet by ORAL route every 6 hours As needed as needed with food; 30 rnoan tablet; Refills: 0, Product Selection Permitted Signatures: Dispatcher [employer] EDMin Wooten MD MD cha Pena, Laura RN RN lp1 Babar Metcalf RN RN ll3 Corrections: (The following items were deleted from the chart) 05:40 05:34 MAGNESIUM+C.LAB.BRZ ordered. EDND EDMS
--- NOTE | 2022-03-12 05:31 | ER ---
Nurse's Notes [facility] Name: Willa Núñez Age: 56 yrs Sex: Female : 1965 Arrival Date: 03/12/2022 Time: 04:07 Bed 17 Private MD: Diagnosis: Cramp and spasm;Pain in left leg Presentation: 03/12 04:12 Chief complaint: EMS states: Called for patient with severe left lower leg cramping lp1 this morning; Patient has hx of muscle cramps, relieved by drinking pickle juice. Coronavirus screen: At this time, the client does not indicate any symptoms associated with coronavirus-19. Ebola Screen: No symptoms or risks identified at this time. Initial Sepsis Screen: Does the patient meet any 2 criteria? No. Patient's initial sepsis screen is negative. Does the patient have a suspected source of infection? No. Patient's initial sepsis screen is negative. Risk Assessment: Do you want to hurt yourself or someone else? Patient reports no desire to harm self or others. Onset of symptoms was March 12, 2022. 04:12 Method Of Arrival: EMS: [facility] lp1 04:12 Acuity: SELENE 4 lp1 Triage Assessment: 04:15 General: Appears uncomfortable, Behavior is calm, cooperative. Pain: Complains of pain ll3 in left quadriceps Pain currently is 3 out of 10 on a pain scale. Pain began 1 hour ago. Is continuous, Noted to be Left quadriceps quivering. Neuro: Level of Consciousness is awake, alert, obeys commands, Oriented to person, place, time, situation. Derm: Skin is pink, warm \T\ dry. Musculoskeletal: Circulation, motion, and sensation intact. Left quad spasm Reports pain in left quadriceps. Historical: - Allergies: 04:13 No Known Allergies; lp1 - Home Meds: 04:13 None [Active]; lp1 - PMHx: 04:13 Anxiety; chronic anemia; Depression; Muscle cramps; lp1 - PSHx: 04:13 Tubal Ligation; lp1 - Immunization history:: Adult Immunizations up to date. - Social history:: Smoking status: Patient reports the use of cigarette tobacco products, smokes one-half pack cigarettes per day. - Family history:: not pertinent. Screenin:14 Abuse screen: Denies threats or abuse. Denies injuries from another. Nutritional lp1 screening: No deficits noted. Tuberculosis screening: No symptoms or risk factors identified. Fall Risk None identified. Assessment: 04:15 General: See triage assessment. ll3 05:15 Reassessment: No changes from previously documented assessment. Patient and/or family ll3 updated on plan of care and expected duration. Pain level reassessed. Patient is alert, oriented x 3, equal unlabored respirations, skin warm/dry/pink. 06:00 Reassessment: No changes from previously documented assessment. Patient and/or family ll3 updated on plan of care and expected duration. Pain level reassessed. Patient is alert, oriented x 3, equal unlabored respirations, skin warm/dry/pink. Patient states feeling better. Patient states symptoms have improved. Vital Signs: 04:12 BP 102 / 49; Pulse 74; Resp 18; Temp 97.6(TE); Pulse Ox 100% on R/A; Weight 83.91 kg lp1 (R); Height 5 ft. 5 in. (165.10 cm); Pain 3/10; 05:00 BP 94 / 47; Pulse 65; Resp 18; Pulse Ox 100% on R/A; ll3 06:00 BP 101 / 57; Pulse 78; Resp 17; Pulse Ox 100% on R/A; ll3 04:12 Body Mass Index 30.79 (83.91 kg, 165.10 cm) lp1 ED Course: 04:07 Patient arrived in ED. vc1 04:09 Min Li MD is Attending Physician. ronan 04:13 Triage completed. lp1 04:13 Arm band placed on right wrist. lp1 04:15 Patient has correct armband on for positive identification. lp1 04:29 Babar Metcalf, TAPAN is Primary Nurse. ll3 04:41 Inserted saline lock: 22 gauge in right antecubital area, using aseptic technique. ds4 Blood collected. 04:58 US Extremity Venous Unilateral Ltd In Process Unspecified. EDMS 05:31 Rocky Koehler DO is Referral Physician. ronan 05:51 No provider procedures requiring assistance completed. ll3 06:00 IV discontinued, intact, bleeding controlled, No redness/swelling at site. Pressure ll3 dressing applied. Administered Medications: 04:50 Drug: NS 0.9% 500 ml Route: IV; Rate: bolus; Site: right antecubital; ll3 06:01 Follow up: Response: No adverse reaction; IV Status: Order to discontinue infusion; IV ll3 Intake: 250ml 04:50 Drug: Valium (diazepam) 5 mg Route: PO; ll3 05:49 Follow up: Response: No adverse reaction ll3 04:50 Drug: Zofran (Ondansetron) 4 mg Route: IVP; Site: right antecubital; ll3 05:49 Follow up: Response: No adverse reaction ll3 05:11 Not Given (Patient Refused): morphine 2 mg IVP or IV at per protocol once; (PAIN>8) ll3 RASS on ADMN: Combtv4, Very Agttd3, Agttd2, Rstlss1, AlertClm0, Drwsy-1, LtSdtn-2, ModSdtn-3, DpSdtn-4, UnArsble-5 x2 05:49 Not Given (Pt dischargedd): NS 0.9% 1000 ml IV at 125 ml/hr continuous ll3 Medication: 04:14 VIS not applicable for this client. lp1 Intake: 06:01 IV: 250ml; Total: 250ml. ll3 Outcome: 05:31 Discharge ordered by . ronan 06:00 Discharged to home ambulatory, with family. ll3 06:00 Condition: stable 06:00 Discharge instructions given to patient, family, Instructed on discharge instructions, follow up and referral plans. medication usage, Demonstrated understanding of instructions, follow-up care, medications, Prescriptions given X 3. 06:02 Patient left the ED. ll3 Signatures: Dispatcher [employer] EDMin Wooten MD MD cha Pena, Laura RN RN lp1 Leopoldo Quintero4 Babar Metcalf RN RN ll3 Sol Barney RN RN vc1
[2022-03-12 06:10] VITALS: TEMP 97.6; O2SAT 100
[2022-03-12 06:13] VITALS: BP 101/57
--- NOTE | 2022-03-12 12:14 | RAD REPORT ---
EXAM DESCRIPTION: US - Extremity Venous Uni Ltd - 03/12/2022 4:56 amStill needs to be read CLINICAL HISTORY: PAIN COMPARISON: None. TECHNIQUE: Real-time sonographic evaluation of the right lower extremity deep venous systems was per formed. FINDINGS: Normal compressibility, flow augmentation, phasic flow and spontaneous flow are identified in the right lower extremity common femoral, superficial femoral, popliteal and posterior tibial vei ns. No intraluminal filling defects seen. IMPRESSION: No DVT in the right lower extremity.
--- NOTE | 2022-03-13 08:55 | EKG ---
Test Date: 2022-03-12 Test Time: 04:59:44 Flat Locker: MITUL MEASUREMENT RESULTS: Intervals: Rate: 62 MO: 136 QRSD: 90 QT: 422 QTc: 428 [place]: P: 53 MO: 136 QRS: -27 T: 45 INTERPRETIVE STATEMENTS: Normal sinus rhythm Normal ECG Compared to ECG 07/28/2018 17:12:35 Left-axis deviation no longer present Myocardial infarct finding no longer present Electronically Signed On 03-13-22 08:55:08 CDT by [facility]
== END 2022-03-12 06:02 | disposition home or self-care (01) ==
LOC: ER 04:05
DX: R25.2 Cramp and spasm (principal); F17.210 Nicotine dependence, cigarettes, uncomplicated
CPT/HCPCS: 36415; 80053; 83735; 84484; 85025; 93005; 93971; 96361; 96374; 99284; J2270; J2405; J7030; J7040

== ENCOUNTER 2023-05-15 12:20 | Emergency (ER) | payer BC, SELFPAY ==
--- OUTSIDE RECORDS SUMMARY | 2023-05-15 12:23 | XMS REPORT | Continuity of Care Document ---
:1965 Author Organization [facility] t Address [address] [place] [address] [place] [id number] Care Team Providers Name Role Phone PCP, PATIENT DOES NOT HAVE A Primary Care Physician UnavailJAMES [place] Attending Clinician Unavailable James Weinstein MD Attending Clinician GISSELLE LEVY Attending Clinician Unavailable Jane Bey MD Attending Clinician JANE BEY Attending Clinician Unavailable GISSELLE LEVY Admitting Clinician Unavailable JANE BEY Admitting Clinician Unavailable Payers Payer Name Policy Type Policy Number Effective Date Expiration Date Carmelo TELLO DISABILITY [id number] 2018 DETERMINATION [employer] 00:00:00 Problems Condition Condition Condition Status Onset Resolution Last Treating Co mments Source Name Details Category Date Date Treatment Clinician Date Right Right Disease Active 2020-0 Univers flank flank 5-08 [place] [facility] Branch Establishi Establishi Disease Active 2020-0 U nivers ng care ng care 5-08 ity of with new with new 00:00: [place] doctor, doctor, 00 Medical encounter encounter Bran ch for for Tobacco Tobacco Disease Active 2020-0 Univers dependence dependence 5-08 it y of 00:00: [address] Branch Pyelonephr Pyelonephr Disease Active 2020-0 U nivers itis itis 5-08 ity of 00:00: [place] [address] Medical Branch Acute Acute Disease Active 2020-0 Univers midline midline 5-08 ity of low back low back 00:00: [place] pain pain 00 Medical without without Branch sciatica sciatica Chills Chills Disease Active Univers 5-08 ity of 00:00: [place] 00 Medical Branch Allergies, Adverse Reactions, Alerts Allergy Allergy Status Severity Reaction(s) Onset Inactive Treating Comm ents Source Name Type Date Date Clinician Tramadol Propensi Active Itching Unive rs ty to 8-15 ity of adverse 00:00: [place] reaction 00 Medical s Branch TRAMADOL DRUG Active ITCHING Univers INGREDI 8-15 ity of 00:00: [place] 00 Medical Branch NO KNOWN Drug Active Univers ALLERGIE Class ity of S [facility] Social History Social Habit Start Date Stop Date Quantity Comments Source Sex Assigned At [facility] Exposure to Unable to assess Univers ity of SARS-CoV-2 [facility] (event) Gypsy Alcohol intake 2020-02-01 2020-02-01 [place] of 00:00:00 00:00:00 [facility] Smoking Status Start Date Stop Date Source Unknown if ever smoked [facility] y [facility] Current every day smoker 2020-02-01 00:00:00 Uni versity of [facility] Medications Ordered Filled Start Stop Current Ordering Indication Dosage Frequency Signature Comments Components Source Medication Medication Date Date Medication? Clinician (SIG) Name Name ciprofloxac Yes [id number] 500mg Take 1 Univers in HCl 500 5-08 tablet by ity of mg tablet 00:00: mouth [place] 00 every 12 Medical (twelve) Branch hours. acetaminoph 2019-0 Yes [id number] 1{tbl} Take 1 Univers en-codeine 5-08 tablet by ity of 300-30 mg 00:00: mouth [place] tablet 00 every 4 Medical (four) Branch hours as needed for Pain (scale 4-6) (Cough). ciprofloxac 2019-0 Yes [id number] 500mg Take 1 Univers in HCl 500 5-08 tablet by ity of mg tablet 00:00: mouth [place] 00 every 12 Medical (twelve) Branch hours. acetaminoph 2020-0 Yes [id number] 1{tbl} Take 1 Univers en-codeine 5-08 tablet by ity of 300-30 mg 00:00: mouth [place] tablet 00 every 4 Medical (four) Branch hours as needed for Pain (scale 4-6) (Cough). ketorolac 2019-0 Yes [id number] 10mg Take 1 Un kari 10 mg 4-27 tablet by ity of tablet 00:00: mouth [place] 00 every 6 Medical (six) Branch hours as needed for Pain (scale 4-6). ketorolac Yes [id number] 10mg Take 1 Un kari 10 mg 4-27 tablet by ity of tablet 00:00: mouth [place] 00 every 6 Medical (six) Branch hours as needed for Pain (scale 4-6). meclizine 2019- No 50mg 50 mg, Unive rs (TRAVEL-EAS 8-05 08-05 Oral, ity of E 22:00: 21:13 ONCE, 1 [place] (MECLIZINE) 00 :00 dose, Mon Med ical ) tablet 50 04/30/19 at [facility] mg 1700, NAZARIO meclizine Yes [id number] 25mg Take 1 U nivers 25 mg [...] (scale 4-6) (Cough). Hydrocodone Yes Take by Uni vers -Acetaminop 1-06 mouth. ity of hen (XODOL 16:46: [place] 7.5/300) 36 Medical 7.5-300 mg Branch tablet Vital Signs Vital Name Observation Time Observation Value Comments Source Heart rate 2019-04-30 21:49:00 65 /min [facility] [place] [facility] Respiratory rate 2019-04-30 21:49:00 15 /min [facility] Oxygen saturation in 2019-04-30 21:49:00 100 /min [facility] Arterial blood by [facility] Pulse oximetry Branch Systolic blood 2019-04-30 21:00:00 103 mm[Hg] Univer sity of pressure [facility] Diastolic blood 2019-04-30 21:00:00 67 mm[Hg] [facility] Body temperature 2019-04-30 19:51:00 36.94 Jacqueline [facility] Body height 2019-04-30 19:51:00 162.6 cm [facility] Body weight 2019-04-30 19:51:00 79.833 kg [facility] BMI 2019-04-30 19:51:00 30.21 kg/m2 [facility] Procedures Procedure Date / Time Performing Clinician Source Performed COMP. METABOLIC PANEL 2019-04-30 20:36:00 Jane Bey [facility] ([id number]) [facility] CBC WITH DIFFERENTIAL 2019-04-30 20:36:00 Jane Bey [facility] CT HEAD WO CONTRAST 2019-04-30 20:32:15 Jane Bey [facility] EKG-12 LEAD 2019-04-30 20:17:49 Jane Bey [facility] Encounters Start End Encounter Admission Attending Care Care Encounter Source Date/Time Date/Time Type Type Clinicians Facility Department ID 2020-03-04 2020-03-04 Outpatient R [facility]INNA [facility] [id number] [facility] 12:40:00 12:40:00 JAMES [facility] 2020-02-28 2020-02-28 Outpatient R [facility]INNA [facility] [id number] Univers 09:00:00 09:00:00 JAMES [facility] 2020-02-15 2020-02-15 Outpatient R CORINNA [facility] [id number] Univers 09:40:00 09:40:00 JAMES [facility] 2020-02-15 2020-02-15 Refill Corinna [facility] [id number] Univers 00:00:00 00:00:00 James Leonard [id number] i ty of [id number] [id number] [address] 2020-02-01 2020-02-01 Outpatient [facility] [id number] Univers 10:40:00 10:40:00 JAMES corona [facility] 2020-02-01 2020-02-01 [id number] Univers 10:40:00 10:40:00 [facility] 2020-02-01 2020-02-01 Telemedici [facility] [id number] Univers 07:27:18 08:07:18 ne Visit James Leonard [id number] ity [facility] [id number] [id number] [address] 2020-01-21 2020-01-[address] [facility] ERT [id number] Univers 10:19:26 12:17:00 GISSELLE [facility] 2019-04-30 2019-04-30 Emergency Critical access hospital [id number] Univers 15:00:09 17:27:00 Jane Leonard [id number] ity [facility] [id number] [id number] [address] 2019-04-30 2019-04-30 [facility] [id number] Univers [facility]:00[facility]09 [facility] Test Description Test Time Test Comments Results Result Comments Source COMP. METABOLIC PANEL (96328) 2019-04-30 21:31:00 Test Item Value Reference Range Interpretation Comme nts NA (test code = 1028312358) 142 mmol/L 135-145 K (test code = 9859469856) 4.3 mmol/L 3.5-5 CL (test code = 9336579772) 108 mmol/L 98-108 CO2 TOTAL (test code = 27 mmol/L 23-31 3961889015) AGAP (test code = 1359041553) 2-16 BUN (test code = 6590334547) 21 mg/dL 7-23 GLUCOSE (test code = 8637492202) 80 mg/dL 70-110 CREATININE (test code = 0.65 mg/dL 0.5-1.04 5046911667) TOTAL BILI (test code = 0.4 mg/dL 0.1-1.3 6707892025) CALCIUM (test code = 5714969199) 9.4 mg/dL 8.6-10.6 T PROTEIN (test code = 7.1 g/dL 6.3-8.2 3879791789) ALBUMIN (test code = 3221229387) 4.3 g/dL 3.5-5 ALK PHOS (test code = 8801232871) 60 U/L 34-122 ALT(SGPT) (test code = 15 U/L 9-51 6855281101) AST(SGOT) (test code = 19 U/L 13-40 3931686474) eGFR Calculation (Non- mL/min/1.73m2 [place]ian) (test code = 2077231837) eGFR Calculation ( mL/min/1.73m2 [place]) (test code = 2629027563) BUSHRA (test code = BUSHRA) Association of [...] or urine or abnormalities in imaging tests). [facility] WITH [id number] 20:54:00 Test Item Value Reference Range Interpretation Comments WBC (test code = See_Comment [Automated 6690-2) message] The sy stem which generated this result transmitted reference range : 4.30 - 11.10 10*3/?L. The reference range was not used to interpret this result as normal/abnormal . RBC (test code = See_Comment H [Automated 789-8) message] The sy stem which generated this [...] RDW-SD (test code = 42.3 fL 39-49.9 63947-5) RDW-CV (test code = 15.0 % 12-15.5 788-0) PLT (test code = See_Comment [Automated 777-3) message] The sy stem which generated this result transmitted reference range : 166 - 358 10*3/ ?L. The reference r lanie was not used to interpret this result as normal/abnormal . MPV (test code = 11.3 fL 9.5-12.9 53758-5) NRBC/100 WBC (test See_Comment [Automat ed code = 1866461593) message] The system which generated this result transmitted reference range : 0.0 - 10.0 /100 WBCs. The refer ence range was not u sed to interpret th is result as normal/abnormal . NRBC x10^3 (test code <0.01 See_Comment [Auto mated = 1392388122) message] The s ystem which generated this result transmitted reference range : 10*3/?L. The reference range was not used to interpret this result as normal/abnormal . GRAN MAT (NEUT) % 48.1 % (test code = 770-8) IMM GRAN % (test code 0.30 % = 0900927336) LYMPH % (test code = 39.4 % 736-9) MONO % (test code = 8.3 % 5905-5) EOS % (test code = 3.3 % 713-8) BASO % (test code = 0.6 % 706-2) GRAN MAT x10^3(ANC) 3.31 10*3/uL 1.88-7.09 (test code = 6441904653) IMM GRAN x10^3 (test <0.03 0-0.06 code = 1773042670) LYMPH x10^3 (test code 2.71 10*3/uL 1.32-3.29 = 731-0) MONO x10^3 (test code 0.57 10*3/uL 0.33-0.92 = 742-7) EOS x10^3 (test code = 0.23 10*3/uL 0.03-0.39 711-2) BASO x10^3 (test code 0.04 10*3/uL 0.01-0.07 = 704-7) Lab Interpretation Abnormal (test code = 77278-4) [facility] [id number] 20:48:26* * * * * * * [...] abnormality is noted. CONCLUSIONS:No acute intracranial abnormality. [facility], Radiant Results Inft User - 04/30/2019 3:50 PM CDT* * * * * * ORIGINAL REPORT [...] calvarial abnormality is noted.CONCLUSIONS: No acute intracranial abnormality.[facility]"
[2023-05-15] MEDS ORDERED: NA CHLORIDE 0.9% 1,000 ML ONE (13:08)
[2023-05-15] MEDS ORDERED: KETOROLAC 30 MG/ML INJ ONE (13:09)
[2023-05-15 13:35] LABS: Specific Gravity 1.027 (1.005-1.030)
[2023-05-15 13:36] LABS: Absolute Lymphocytes (CBC) 1.1 K/uL (0.7-4.9); Hematocrit 38.8 % (36.0-45.0); Lymphocytes % 30.6 % (15.3-44.8); MCV 75.3 fL (80-100); Platelets 145 thou/uL (152-406); RBC Red Blood Cell Count 5.16 M/uL (3.86-4.86)
[2023-05-15 13:38] LABS: Specific Gravity 1.027 (1.005-1.030); Urine Bacteria >50 /HPF (<20); Urine Bilirubin NEGATIVE (Negative); Urine Blood 1+ (Negative); Urine Clarity Extremely Turbid (Clear); Urine Color Yellow (Yellow); Urine Glucose NEGATIVE (Negative); Urine Mucus 4+ /HPF (None Seen); Urine Protein 1+ (Negative); Urine Urobilinogen 2+ (Normal)
[2023-05-15 13:44] LABS: Albumin 3.6 g/dL (3.4-5.0); Bilirubin Total 0.2 mg/dL (0.2-1.0); Potassium 3.4 mEq/L (3.5-5.1); Protein, Total 6.7 g/dL (6.4-8.2)
--- NOTE | 2023-05-15 14:17 | EDPHYS ---
Physician Documentation [facility] Name: Willa Núñez Age: 57 yrs Sex: Female : 1965 Arrival Date: 05/15/2023 Time: 12:20 Bed 18 Private MD: ED Physician Magdalena Koehler HPI: 05/15 12:57 This 57 yrs old Black Female presents to ER via Ambulatory with complaints of Back sp3 Pain, Knee Pain, Headache, Cough. 12:57 57-year-old female with a history of chronic anemia, depression, muscle cramps, sp3 arthritis, chronic pain, degenerative disc disease now presents to the ED for lower back and bilateral knee pain consistent with her prior arthritis. Patient states she lost her insurance and was unable to continue seeing her pain management doctor that she has insurance again and is searching for an in network provider. She is coming in here for temporary relief. She also states she has urinary frequency and mild dysuria. ROS negative for fever, URI symptoms, new neck pain, chest pain, shortness of breath, abdominal pain, vomiting, diarrhea bleeding, syncope, neurological symptoms, travel history, known sick contacts, or any other signs or symptoms on ROS at this time.. Historical: - Allergies: 12:42 tramadol; nj1 - PMHx: 12:35 Anxiety; chronic anemia; Depression; Muscle cramps; Arthritis; nj1 - PSHx: 12:35 tubal ligation; nj1 - Immunization history:: Client reports having NOT received the Covid vaccine. - Social history:: Smoking status: Patient reports the use of cigarette tobacco products, smokes one-half pack cigarettes per day. ROS: 13:00 Constitutional: Negative for fever, chills, and weight loss, Eyes: Negative for injury, sp3 pain, redness, and discharge, Neck: Negative for injury, pain, and swelling, Cardiovascular: Negative for chest pain, palpitations, and edema, Respiratory: Negative for shortness of breath, cough, wheezing, and pleuritic chest pain, Abdomen/GI: Negative for abdominal pain, nausea, vomiting, diarrhea, and constipation, Skin: Negative for injury, rash, and discoloration, Neuro: Negative for headache, weakness, numbness, tingling, and seizure, Psych: Negative for depression, anxiety, suicide ideation, homicidal ideation, and hallucinations, Allergy/Immunology: Negative for hives, rash, and allergies. 13:00 All other systems are negative. Exam: 13:00 Constitutional: This is a well developed, well nourished patient who is awake, alert, sp3 and in no acute distress. Head/Face: Normocephalic, atraumatic. Eyes: Pupils equal round and reactive to light, extra-ocular motions intact. Lids and lashes normal. Conjunctiva and sclera are non-icteric and not injected. Cornea within normal limits. Periorbital areas with no swelling, redness, or edema. ENT: Nares patent. No nasal discharge, no septal abnormalities noted. External auditory canals are clear. Oropharynx with no redness, swelling, or masses, exudates, or evidence of obstruction, uvula midline. Mucous membranes moist. Neck: Trachea midline, no thyromegaly or masses palpated, and no cervical lymphadenopathy. Supple, full range of motion without nuchal rigidity, or vertebral point tenderness. No Meningismus. Chest/axilla: Normal chest wall appearance and motion. Nontender with no deformity. No lesions are appreciated. Cardiovascular: Regular rate and rhythm with a normal S1 and S2. No gallops, murmurs, or rubs. Normal PMI, no JVD. No pulse deficits. Respiratory: Lungs have equal breath sounds bilaterally, clear to auscultation and percussion. No rales, rhonchi or wheezes noted. No increased work of breathing, no retractions or nasal flaring. Abdomen/GI: Soft, non-tender, with normal bowel sounds. No distension or tympany. No guarding or rebound. No evidence of tenderness throughout. Skin: Warm, dry with normal turgor. Normal color with no rashes, no lesions, and no evidence of cellulitis. Neuro: Awake and alert, GCS 15, oriented to person, place, time, and situation. Cranial nerves II-XII grossly intact. Motor strength 5/5 in all extremities. Sensory grossly intact. Cerebellar exam normal. Normal gait. Psych: Awake, alert, with orientation to person, place and time. Behavior, mood, and affect are within normal limits. 13:01 Musculoskeletal/extremity: No joint abnormality, joint effusion, or any other sp3 concerning findings. Patient is ambulatory.. Vital Signs: 12:32 BP 114 / 79; Pulse 93; Resp 18; Temp 99.5(O); Pulse Ox 100% ; Weight 78.02 kg; Height 5 nj1 ft. 6 in. ; Pain 9/10; 13:41 BP 108 / 50; Pulse 75; Resp 18 S; Pulse Ox 99% on R/A; kc6 12:32 Body Mass Index 27.76 (78.02 kg, 167.64 cm) nj1 12:32 Pain Scale: Adult nj1 MDM: 12:46 Patient medically screened. sp3 13:01 Data reviewed: vital signs, nurses notes, lab test result(s). ED course: 57-year-old sp3 female with chronic pain type symptoms. I believe these are acute findings and there is no acute sepsis or other critical findings at this time. We will administer ketorolac IV, check laboratory values including hemoglobin given her prior history of anemia, and urinalysis given her urinary symptoms. Disposition will be based on work-up and patient course with appropriate medications added if indicated.. 14:16 ED course: Pain is mildly improved and laboratory values demonstrate no significant sp3 abnormality. UA is positive for UTI so we will administer Rocephin 1 g IV here and discharge patient home on p.o. Bactrim with PCP follow-up.. 05/15 12:57 Order name: CBC with Diff; Complete Time: 14:09 sp3 05/15 12:57 Order name: CMP; Complete Time: 14: sp3 05/15 12:57 Order name: Urinalysis w/ reflexes; Complete Time: 14: sp3 05/15 12:57 Order name: Test, Urine; Complete Time: 14: sp3 05/15 12:57 Order name: CK; Complete Time: 14:09 sp3 05/15 12:57 Order name: IV Saline Lock; Complete Time: 13:20 sp3 05/15 12:57 Order name: Labs collected and sent; Complete Time: 13:20 sp3 Administered Medications: 13:20 Drug: NS 0.9% IV 1000 ml Route: IV; Rate: 1 bolus; Site: left antecubital; kc6 14:24 Follow up: Response: No adverse reaction; IV Status: Completed infusion; IV Intake: kc6 1000ml 13:20 Drug: Ketorolac IVP 15 mg Route: IVP; Site: left antecubital; kc6 14:24 Follow up: Response: No adverse reaction; Pain is decreased kc6 14:24 Drug: Rocephin - Rocephin (cefTRIAXone) IVPB 1 grams Route: IVPB; Infused Over: 30 kc6 mins; Site: left antecubital; 14:46 Follow up: Response: No adverse reaction; IV Status: Completed infusion; IV Intake: [id number] Disposition Summary: 05/15/23 14:16 Discharge Ordered Location: Home sp3 Condition: Stable sp3 Diagnosis - Urinary tract infection, chronic pain, arthritis sp3 Followup: sp3 - With: Private Physician - When: Upon discharge from the Emergency Department - Reason: Recheck today's complaints Discharge Instructions: - Discharge Summary Sheet sp3 - Chronic Pain, Adult sp3 - Urinary Tract Infection, Adult sp3 Forms: - Medication Reconciliation Form sp3 - Thank You Letter sp3 - Antibiotic Education sp3 - Prescription Opioid Use sp3 - Patient Portal Instructions sp3 - Leadership Thank You Letter sp3 Prescriptions: - Bactrim DS 800-160 mg Oral Tablet - take 1 tablet by ORAL route every 12 hours for 5 days; 10 tablet; Refills: 0, sp3 Product Selection Permitted Signatures: Dispatcher [employer] Magdalena Espinosa MD MD sp3 Marie Munoz RN RN kc6 Dinorah Li RN RN nj1 Corrections: (The following items were deleted from the chart) 12:42 12:35 Allergies: No Known Allergies; nj1 nj1
--- NOTE | 2023-05-15 14:17 | ER ---
Nurse's Notes [facility] Name: Willa Núñez Age: 57 yrs Sex: Female : 1965 Arrival Date: 05/15/2023 Time: 12:20 Bed 18 Private MD: Diagnosis: Urinary tract infection, chronic pain, arthritis Presentation: 05/15 12:32 Chief complaint: Patient states: Low back pain along with susanna knee pain. Denies injury. nj1 Onset, about a week ago but yesterday it got really bad that made her almost vomit. She also complains of cough and headaches since Tuesday afternoon. Has taken ibuprofen with no relief. Last taken was this morning. Coronavirus screen: Vaccine status: Patient reports being unvaccinated. Ebola Screen: Patient denies travel to an Ebola-affected area in the 21 days before illness onset. Initial Sepsis Screen: Does the patient meet any 2 criteria? HR > 90 bpm. No. Patient's initial sepsis screen is negative. Does the patient have a suspected source of infection? No. Patient's initial sepsis screen is negative. Risk Assessment: Do you want to hurt yourself or someone else? Patient reports no desire to harm self or others. Onset of symptoms was May 08, 2023. 12:32 Method Of Arrival: Ambulatory [facility] 12:32 Acuity: SELENE 3 nj1 Historical: - Allergies: 12:42 tramadol; nj1 - PMHx: 12:35 Anxiety; chronic anemia; Depression; Muscle cramps; Arthritis; nj1 - PSHx: 12:35 tubal ligation; nj1 - Immunization history:: Client reports having NOT received the Covid vaccine. - Social history:: Smoking status: Patient reports the use of cigarette tobacco products, smokes one-half pack cigarettes per day. Screenin:44 [facility] ED Fall Risk Assessment (Adult) History of falling in the last 3 months, kc6 including since admission No falls in past 3 months (0 pts) Confusion or Disorientation No (0 pts) Intoxicated or Sedated No (0 pts) Impaired Gait No (0 pts) Mobility Assist Device Used No (0 pt) Altered Elimination No (0 pt) Score/Fall Risk Level 0 - 2 = Low Risk. Abuse screen: Denies threats or abuse. Denies injuries from another. Nutritional screening: No deficits noted. Tuberculosis screening: No symptoms or risk factors identified. Assessment: 13:40 General: Appears in no apparent distress. comfortable, Behavior is calm, cooperative, kc6 appropriate for age. Pain: Complains of pain in back, right leg and left leg. Neuro: Level of Consciousness is awake, alert, obeys commands, Oriented to person, place, time, situation, Appropriate for age. Cardiovascular: Capillary refill < 3 seconds. Respiratory: Reports cough that is Airway is patent Trachea midline Respiratory effort is even, unlabored, Respiratory pattern is regular, symmetrical. GI: No signs and/or symptoms were reported involving the gastrointestinal system. : No signs and/or symptoms were reported regarding the genitourinary system. EENT: No signs and/or symptoms were reported regarding the EENT system. Derm: No signs and/or symptoms reported regarding the dermatologic system. Skin is intact, is healthy with good turgor, Skin is pink, warm \T\ dry. Musculoskeletal: No signs and/or symptoms reported regarding the musculoskeletal system. Circulation, motion, and sensation intact. Capillary refill < 3 seconds, Range of motion: intact in all extremities. Vital Signs: 12:32 BP 114 / 79; Pulse 93; Resp 18; Temp 99.5(O); Pulse Ox 100% ; Weight 78.02 kg; Height 5 nj1 ft. 6 in. ; Pain 9/10; 13:41 BP 108 / 50; Pulse 75; Resp 18 S; Pulse Ox 99% on R/A; kc6 12:32 Body Mass Index 27.76 (78.02 kg, 167.64 cm) nj1 12:32 Pain Scale: Adult nj1 ED Course: 12:22 Patient arrived in ED. ts1 12:25 Magdalena Koehler MD is Attending Physician. sp3 12:35 Triage completed. nj1 12:36 Arm band placed on right wrist. nj1 12:43 Marie Munoz RN is Primary Nurse. kc6 12:44 Patient has correct armband on for positive identification. Bed in low position. Call kc6 light in reach. Side rails up X 1. Adult w/ patient. 13:20 Missed attempt(s): 20 gauge in right antecubital area. Inserted saline lock: 20 gauge kc6 in left antecubital area, using aseptic technique. 14:46 No provider procedures requiring assistance completed. IV discontinued, intact, kc6 bleeding controlled, No redness/swelling at site. Pressure dressing applied. Administered Medications: 13:20 Drug: NS 0.9% IV 1000 ml Route: IV; Rate: 1 bolus; Site: left antecubital; kc6 14:24 Follow up: Response: No adverse reaction; IV Status: Completed infusion; IV Intake: kc6 1000ml 13:20 Drug: Ketorolac IVP 15 mg Route: IVP; Site: left antecubital; kc6 14:24 Follow up: Response: No adverse reaction; Pain is decreased kc6 14:24 Drug: Rocephin - Rocephin (cefTRIAXone) IVPB 1 grams Route: IVPB; Infused Over: 30 kc6 mins; Site: left antecubital; 14:46 Follow up: Response: No adverse reaction; IV Status: Completed infusion; IV Intake: [id number] Medication: 14:46 VIS not applicable for this client. kc6 Intake: 14:24 IV: 1000ml; Total: 1000ml. kc6 14:46 IV: 10ml; Total: 1010ml. kc6 Outcome: 14:16 Discharge ordered by . sp3 14:46 Discharged to home ambulatory, with family. kc6 14:46 Condition: stable 14:46 Discharge instructions given to patient, Instructed on discharge instructions, follow up and referral plans. medication usage, Demonstrated understanding of instructions, follow-up care, medications, Prescriptions given X 1. 14:47 Patient left the ED. kc6 Signatures: Magdalena Koehler MD MD sp3 Marie Munoz RN RN kc6 Dinorah Li RN RN nj1 Mary Ann Emery PAS PAS ts1 Corrections: (The following items were deleted from the chart) 12:42 12:35 Allergies: No Known Allergies; nj1 nj1
[2023-05-15] MEDS ORDERED: CEFTRIAXONE 1000 MG/VIAL ONE (14:30)
[2023-05-15 15:13] VITALS: TEMP 99.5
[2023-05-15 15:19] VITALS: BP 108/50; O2SAT 99
== END 2023-05-15 14:47 | disposition home or self-care (01) ==
LOC: ER 12:20
DX: N39.0 Urinary tract infection, site not specified (principal); G89.29 Other chronic pain; M17.0 Bilateral primary osteoarthritis of knee; F17.210 Nicotine dependence, cigarettes, uncomplicated; Z88.5 Allergy status to narcotic agent
CPT/HCPCS: 96365; 96361; 85025; 81001; 36415; 82550; 81025; 80053; 96375; 99284; J7030; J0696